=== PATIENT | female | born 1960 | race Caucasian/White ===

== ENCOUNTER 2019-05-06 11:12 | Emergency (ER) | payer MEDICARE, OTHER, SELFPAY ==
[2019-05-06 11:18] VITALS: BP 161/94; PULSE 80; RESP 16; TEMP 36; O2SAT 96
--- NOTE | 2019-05-06 11:38 | DI.RAD.S_ITS ---
PROCEDURE: XR ACUTE ABDOMEN SERIES INDICATIONS: abd pain TECHNIQUE: One view chest and two views of the abdomen were acquired. COMPARISON: None. FINDINGS: Surgical changes and devices: There is partial visualization of a left shoulder arthroplasty. Chest: Low lung volumes are noted. This causes a crowded appearance to the lung markings and limits evaluation. There is elevation the right hemidiaphragm. Interstitial prominence is seen throughout. Heart size is normal. No pleural effusions. No pneumoperitoneum. Abdomen: Bowel gas pattern is normal. There is a moderate amount of stool seen within the colon. No suspicious calcifications. Pelvic phleboliths are incidentally noted. Visualized solid organ contours appear normal. Bones: No suspicious bony lesions. Age-appropriate bony degenerative changes are seen. IMPRESSION: There is a moderate amount of stool seen within the colon. Please correlate with an underlying history of constipation. A nonobstructive bowel gas pattern is seen. As clinically appropriate, please consider a repeat plain film study or a dedicated CT of the abdomen and pelvis, if the patient's symptoms persist or worsen. Interstitial prominence is seen throughout. The interstitial prominence is nonspecific, yet may be related to pulmonary edema. Differential diagnosis includes artifact from an incomplete inspiratory result. Dictated by: Declan Cordao M.D. on 05/06/2019 at 11:23 Approved by: Declan Corado M.D. on 05/06/2019 at 11:24
--- NOTE | 2019-05-06 11:47 | DI.US.S_ITS ---
PROCEDURE: US ABDOMEN LIMITED INDICATIONS: RIGHT UPPER QUADRANT PAIN TECHNIQUE: Real-time focused scanning was performed of the abdomen, with image documentation. COMPARISON: [facility], CR, XR ACUTE ABDOMEN SERIES, 05/06/2019, 11:39. FINDINGS: The gallbladder is not well-seen. However, no findings of gallstones or sludge are seen. The gallbladder wall is not thickened, measuring 3 mm or less. No specific pericholecystic fluid is seen. The sonographic Nye sign is negative. There is no biliary dilatation, the common bile duct measures 6-7 mm. The liver demonstrates normal size. The liver demonstrates generalized increased echogenicity. This decreases ultrasound sensitivity for detection of hepatic masses. The pancreas is not well-seen. IMPRESSION: The gallbladder demonstrates a normal sonographic appearance. No biliary dilatation is seen. The liver demonstrates increased echogenicity. This finding is nonspecific, yet it is most commonly attributed to fatty infiltration. Dictated by: Declan Corado M.D. on 05/06/2019 at 13:13 Approved by: Declan Corado M.D. on 05/06/2019 at 13:15
[2019-05-06 12:00] VITALS: BP 144/94; PULSE 69; RESP 12; O2SAT 95
[2019-05-06 12:09] LABS: Add Manual Diff / Slide Review NO; Basophils Absolute Auto 100 /uL (0-100); Basophils Percent Auto 1.4 % (0-2); Eosinophils Absolute Auto 200 /uL (0-450); Eosinophils Percent Auto 3.2 % (2-4); Hemoglobin 12.5 g/dL (12.0-16.0); Lymphocytes Absolute Auto 2000 /uL (1100-4500); Lymphocytes Percent Auto 29.7 % (25-40); Mean Corpuscular HGB Conc 33.9 % (30-36); Mean Corpuscular Hemoglobin 30.4 PG (26-34); Mean Corpuscular Volume 89.6 fL (80-100); Monocytes Absolute Auto 400 /uL (0-900); Monocytes Percent Auto 6.2 % (3-14); Neutrophils Absolute Auto 3900 /uL (1500-7000); Neutrophils Percent Auto 59.5 % (50-75); Platelet Count 259 X10^3/uL (150-400); Red Blood Cell Count 4.12 X10^6/uL (4.0-5.2); White Blood Cell Count 6.6 X10^3/uL (4.5-11.0)
[2019-05-06 12:16] LABS: INR 0.9 (0.9-1.3); Prothrombin Time 10.5 SECONDS (10.1-12.7)
[2019-05-06 12:19] LABS: PTT Partial Thromboplastin Tim 28 SECONDS (26.4-36.2)
[2019-05-06 12:20] LABS: Alanine Aminotransferase 24 IU/L (9-52); Albumin 4.1 g/dL (3.5-5.0); Albumin Globulin Ratio 1.4 (1.0-2.8); Alkaline Phosphatase 52 U/L (38-126); Aspartate Aminotransferase 28 IU/L (14-36); BUN Creatinine Ratio 23.3 (6-22); Bilirubin Total 0.3 mg/dL (0.2-1.3); Blood Urea Nitrogen 14 mg/dL (7-17); Calcium 9.3 mg/dL (8.4-10.2); Carbon Dioxide 28 mmol/L (22-32); Chloride 101 mmol/L (98-107); Estimated Glomerular Filt Rate > 60.0 mL/min (>60); Glucose 113 mg/dL (70-100); HEMOLYSIS < 15 (0-50); Lipase 41 U/L (23-300); Potassium 3.7 mmol/L (3.4-5.1); Sodium 139 mmol/L (137-145); Total Protein 7.1 g/dL (6.3-8.2)
--- NOTE | 2019-05-06 12:23 | ED.ABDPAIN ---
HPI - Abdominal Pain General Chief Complaint: Abdominal Pain Stated Complaint: chest pain Time Seen by Provider: 05/06/19 11:14 Source: patient and family Mode of arrival: ambulatory Limitations: no limitations History of Present Illness HPI narrative: 58-year-old female nonsmoker with complicated medical history presents with a chief complaint of sharp and stabbing right sided abdominal pain off and on for the past day or 2. She denies fever or chills nor nausea or vomiting. She is admittedly had decreased bowel movements. Six weeks ago the patient had a partial lobectomy in [place] due to abnormal biopsies. This was followed up with a VATS procedure. Her pain is worse with motion and deep breaths. She does not feel short of breath. MD complaint: abdominal pain Onset (ago): day(s) Pain Consistency: intermittent Location: RUQ Severity: moderate Quality: stabbing and sharp Relieving factors: rest Exacerbating factors: nothing Associated symptoms: denies other symptoms Related Data Allergies Allergy/AdvReac Type Severity Reaction Status Date / Time No Known Drug Allergies Allergy Verified 05/06/19 11:22 Review of Systems Constitutional Denies chills, Denies fever(s), Denies lethargy and Denies weakness Eyes Denies change in vision, Denies eye discharge, Denies irritation and Denies loss of vision ENT Ears, Nose, Mouth, and Throat: Denies change in voice, Denies neck pain and Denies sore throat Cardiovascular Denies chest pain, Denies irregular heart rhythm, Denies lightheadedness, Denies palpitations, Denies dyspnea, Denies dyspnea on exertion and Denies orthopnea Respiratory Denies cough, Denies dyspnea, Denies dyspnea on exertion and Denies wheezing Gastrointestinal Gastrointestinal: Reports abdominal pain, Denies change in bowel habits, Denies diarrhea, Denies nausea and Denies vomiting Genitourinary Denies hematuria, Denies flank pain, Denies urinary incontinence and Denies urinary urgency Musculoskeletal Denies neck pain Integumentary/Breasts Denies pruritus, Denies erythema, Denies rash and Denies wounds Neurologic Denies confusion, Denies loss of vision and Denies weakness Psychiatric Denies anxiety, Denies confusion, Denies depression, Denies homicidal ideation and Denies suicidal ideation Endocrine Denies palpitations Hematologic/Lymphatic Denies easy bruising Allergic/Immunologic Denies wheezing [facility] Social History Smoking Status: Never smoker Social History Smoking Status: Never smoker Exam Narrative Exam Narrative: GENERAL: 58-year-old female appears stated age, resting comfortably though obviously uncomfortable, rubbing her right upper quadrant HEAD: Atraumatic. Normocephalic. No temporal or scalp tenderness. EYES: Pupils equal round and reactive. Extraocular motions intact. No scleral icterus. No injection or drainage. ENT: Nose without bleeding, purulent drainage or septal hematoma. Throat without erythema, tonsillar hypertrophy or exudate. Uvula midline. Airway patent. NECK: Trachea midline. No JVD or lymphadenopathy. Supple, nontender, no meningeal signs. CARDIOVASCULAR: Regular rate and rhythm without murmurs, gallops, or rubs. RESPIRATORY: Clear to auscultation. Breath sounds equal bilaterally. No wheezes, rales, or rhonchi. GASTROINTESTINAL: Abdomen soft, reproducible tenderness to palpation of the right upper quadrant, nondistended. No hepato-splenomegaly, or palpable masses. No guarding. EXTREMITIES: No clubbing, cyanosis, or edema. No joint tenderness, effusion, or edema noted. BACK: Nontender without deformity or crepitance. No flank tenderness. NEURO: AOx3. SKIN: No rash or erythema. Initial Vital Signs Initial Vital Signs: Vital Signs Temperature 96.8 F L 05/06/19 11:18 Pulse Rate 80 05/06/19 11:18 Respiratory Rate 16 05/06/19 11:18 Blood Pressure 161/94 H 05/06/19 11:18 Pulse Oximetry 96 05/06/19 11:18 Course Orders Ordered: ED Orders 05/06/19 11:37 EKG-12 Lead Stat 05/06/19 11:38 XR acute abdomen series Stat 05/06/19 11:47 US abdomen limited Stat 05/06/19 12:00 Complete Blood Count AUTO DIFF Stat Comprehensive Metabolic Panel Stat Lipase Stat Partial Thromboplastin Time Stat Prothrombin Time INR Stat Discontinued Medications Hydromorphone HCl (Dilaudid) 1 mg IV NOW ONE Stop: 05/06/19 11:49 Last Admin: 05/06/19 12:53 Dose: 1 mg Hydromorphone HCl (Dilaudid) 1 mg IV NOW ONE Stop: 05/06/19 14:33 Last Admin: 05/06/19 14:38 Dose: 1 mg Ondansetron HCl (Zofran) 4 mg IV Q4HR PRN PRN Reason: Nausea And Vomiting Last Admin: 05/06/19 12:53 Dose: 4 mg Vital Signs - 8 hr 05/06/19 11:18 05/06/19 12:00 05/06/19 13:06 Temperature 96.8 F L Pulse Rate 80 69 68 Respiratory Rate 16 12 14 Blood Pressure 161/94 H Blood Pressure [Left Arm] 144/94 H 131/76 Pulse Oximetry 96 95 96 05/06/19 13:44 05/06/19 14:59 Temperature 98.3 F Pulse Rate 64 68 Respiratory Rate 13 14 Blood Pressure 143/75 H Blood Pressure [Left Arm] 137/86 Pulse Oximetry 94 96 MDM - Abdominal Pain Lab Data Result diagrams: 05/06/19 12:00 05/06/19 12:00 Lab Results 05/06/19 05/06/19 05/06/19 Range/Units 12:00 12:00 12:00 WBC 6.6 (4.5-11.0) X10^3/uL RBC 4.12 (4.0-5.2) X10^6/uL Hgb 12.5 (12.0-16.0) g/dL Hct 37.0 (36-46) % MCV 89.6 (80-100) fL MCH 30.4 (26-34) PG MCHC 33.9 (30-36) % RDW 15.0 H (11.6-14.8) % Plt Count 259 (150-400) X10^3/uL Neut % (Auto) 59.5 (50-75) % Lymph % (Auto) 29.7 (25-40) % Cataño % (Auto) 6.2 (3-14) % Eos % (Auto) 3.2 (2-4) % Baso % (Auto) 1.4 (0-2) % Neut # (Auto) 3900 (7763-7154) /uL Lymph # (Auto) 2000 (5443-5394) /uL Cataño # (Auto) 400 (0-900) /uL Eos # (Auto) 200 (0-450) /uL Baso # (Auto) 100 (0-100) /uL PT 10.5 (10.1-12.7) SECONDS INR 0.9 (0.9-1.3) APTT 28 (26.4-36.2) SECONDS Sodium 139 (137-145) mmol/L Potassium 3.7 (3.4-5.1) mmol/L Chloride 101 (98-107) mmol/L Carbon Dioxide 28 (22-32) mmol/L BUN 14 (7-17) mg/dL Creatinine 0.60 (0.52-1.04) mg/dL Estimated GFR > 60.0 (>60) mL/min BUN/Creatinine Ratio 23.3 H (6-22) Glucose 113 H (70-100) mg/dL Calcium 9.3 (8.4-10.2) mg/dL Total Bilirubin 0.3 (0.2-1.3) mg/dL AST 28 (14-36) IU/L ALT 24 (9-52) IU/L Alkaline Phosphatase 52 (38-126) U/L Total Protein 7.1 (6.3-8.2) g/dL Albumin 4.1 (3.5-5.0) g/dL Globulin 3.0 (1.7-4.1) g/dL Albumin/Globulin Ratio 1.4 (1.0-2.8) Lipase 41 (23-300) U/L Imaging Data Abdominal x-ray: Radiologist's impression: Chart Viewer Diagnostics DATE TYPE STATUS AUTHOR Hx 05/06/19 11:47 Declan Corado 05/06/19 11:38 Declan Corado Katheline K 58, 1960 DEP ER, ED.LOC - Main ED Abdominal Pain Search Chart No Data to Display ONSET Today 14:59 Kenna Lopez 58 F [address] [address] XRay Report Signed Patient: John,Katdane KMR#: [id number] : 9Acct:[id number] Age/Sex: 58 / FDate of Service: 05/06/19 Loc: ED Accession Number: [id number] Procedure: XR acute abdomen series Ordering Provider: Juan Alberto Graves D.O. PROCEDURE: XR ACUTE ABDOMEN SERIES INDICATIONS: abd pain TECHNIQUE: One view chest and two views of the abdomen were acquired. COMPARISON: None. FINDINGS: Surgical changes and devices: There is partial visualization of a left shoulder arthroplasty. Chest: Low lung volumes are noted. This causes a crowded appearance to the lung markings and limits evaluation. There is elevation the right hemidiaphragm. Interstitial prominence is seen throughout. Heart size is normal. No pleural effusions. No pneumoperitoneum. Abdomen: Bowel gas pattern is normal. There is a moderate amount of stool seen within the colon. No suspicious calcifications. Pelvic phleboliths are incidentally noted. Visualized solid organ contours appear normal. Bones: No suspicious bony lesions. Age-appropriate bony degenerative changes are seen. IMPRESSION: There is a moderate amount of stool seen within the colon. Please correlate with an underlying history of constipation. A nonobstructive bowel gas pattern is seen. As clinically appropriate, please consider a repeat plain film study or a dedicated CT of the abdomen and pelvis, if the patient's symptoms persist or worsen. Interstitial prominence is seen throughout. The interstitial prominence is nonspecific, yet may be related to pulmonary edema. Differential diagnosis includes artifact from an incomplete inspiratory result. Dictated by: Declan Corado M.D. on 05/06/2019 at 11:23 Approved by: Declan Corado M.D. on 05/06/2019 at 11:24 US - abdomen: Radiologist's impression: [place] [address] Ultrasound Report Signed Patient: Kenna Lopez KMR#: [id number] : 9Acct:[id number] Age/Sex: 58 / FDate of Service: 05/06/19 Loc: ED Accession Number: [id number] Procedure: US abdomen limited Ordering Provider: Juan Alberto Graves D.O. PROCEDURE: US ABDOMEN LIMITED INDICATIONS: RIGHT UPPER QUADRANT PAIN TECHNIQUE: Real-time focused scanning was performed of the abdomen, with image documentation. [facility] 11:39. FINDINGS: The gallbladder is not well-seen. However, no findings of gallstones or sludge are seen. The gallbladder wall is not thickened, measuring 3 mm or less. No specific pericholecystic fluid is seen. The sonographic Nye sign is negative. There is no biliary dilatation, the common bile duct measures 6-7 mm. The liver demonstrates normal size. The liver demonstrates generalized increased echogenicity. This decreases ultrasound sensitivity for detection of hepatic masses. The pancreas is not well-seen. IMPRESSION: The gallbladder demonstrates a normal sonographic appearance. No biliary dilatation is seen. The liver demonstrates increased echogenicity. This finding is nonspecific, yet it is most commonly attributed to fatty infiltration. Dictated by: Declan Corado M.D. on 05/06/2019 at 13:13 MDM Narrative Medical decision making narrative: 58-year-old female with right upper quadrant pain and recent lobectomy presents in obvious discomfort. She has stable vital signs and imaging to demonstrate constipation. Gallbladder disease, liver disease and pancreatitis are considered as options but thought less likely given lack of laboratory or ultrasound findings. Postoperative complications including pneumothorax, pleural effusion and others considered but thought less likely given x-ray findings. Patient felt much better after the above-stated therapies. We discussed CT of the chest abdomen and pelvis for the most complete approach and the patient refused at this point in time despite a discussion of the risks and benefits. She states she is headed home in a day or 2 feels so much better that she would prefer the completion of her evaluation there. She was given return precautions. Her and daughter had questions answered to their apparent satisfaction Discharge Plan Departure Patient Disposition: Home Clinical Impression: Abdominal pain Qualifiers: Abdominal location: right upper quadrant Qualified Code(s): R10.11 - Right upper quadrant pain Discharge Date/Time: 05/06/19 15:00 Interventions: ED Discharge Assessment Last Done: 05/06/19 14:59 Instructions: Acute Abdominal Pain Activity Restrictions/Additional Instructions: *You have been diagnosed with [ acute right upper quadrant pain. ] *What to do: *Take medications as directed *Follow up with your primary care provider in 2-3 days, call for an appointment. Let them know you were seen in the Emergency Department and that we ask that you be seen in follow up *Return to ER if you should have any new, worsening or concerning symptoms
[2019-05-06] MEDS: HYDROMORPHONE 1 MG INJ IV ×2 (12:53→14:38)
[2019-05-06] MEDS: ONDANSETRON 4 MG/2 ML INJ IV (12:53)
[2019-05-06 13:06] VITALS: BP 131/76; PULSE 68; RESP 14; O2SAT 96
[2019-05-06 13:44] VITALS: BP 137/86; PULSE 64; RESP 13; O2SAT 94
[2019-05-06 14:59] VITALS: BP 143/75; PULSE 68; RESP 14; TEMP 36.8; O2SAT 96
--- NOTE | 2019-05-06 19:11 | ED_ITS ---
HPI - Abdominal Pain General Chief Complaint: Abdominal Pain Stated Complaint: chest pain Time Seen by Provider: 05/06/19 11:14 Source: patient and family Mode of arrival: ambulatory Limitations: no limitations History of Present Illness HPI narrative: 58-year-old female nonsmoker with complicated medical history pr esents with a chief complaint of sharp and stabbing right sided abdominal pain off and on for the past day or 2. She denies fever or chills nor nausea or vomiting. She is admittedly had decreased bowel movements. Six weeks ago the patient had a partial lobectomy in [place] due to abnormal biopsies. This was followed up with a VATS procedure. Her pain is worse with motion and deep breaths. She does not feel short of breath. MD complaint: abdominal pain Onset (ago): day(s) Pain Consistency: intermittent Location: RUQ Severity: moderate Quality: stabbing and sharp Relieving factors: rest Exacerbating factors: nothing Associated symptoms: denies other symptoms Related Data Allergies Allergy/AdvReac Type Severity Reaction Status Date / Time No Known Drug Allergies Allergy Verified 05/06/19 11:22 Review of Systems Constitutional Denies chills, Denies fever(s), Denies lethargy and Denies weakness Eyes Denies change in vision, Denies eye discharge, Denies irritation and Denies loss of vision ENT Ears, Nose, Mouth, and Throat: Denies change in voice, Denies neck pain and Denies sore throat Cardiovascular Denies chest pain, Denies irregular heart rhythm, Denies lightheadedness, Denies palpitations, Denies dyspnea, Denies dyspnea on exertion and Denies orthopnea Respiratory Denies cough, Denies dyspnea, Denies dyspnea on exertion and Denies wheezing Gastrointestinal Gastrointestinal: Reports abdominal pain, Denies change in bowel habits, Denies diarrhea, Denies nausea and Denies vomiting Genitourinary Denies hematuria, Denies flank pain, Denies urinary incontinence and Denies urinary urgency Musculoskeletal Denies neck pain Integumentary/Breasts Denies pruritus, Denies erythema, Denies rash and Denies wounds Neurologic Denies confusion, Denies loss of vision and Denies weakness Psychiatric Denies anxiety, Denies confusion, Denies depression, Denies homicidal ideation and Denies suicidal ideation Endocrine Denies palpitations Hematologic/Lymphatic Denies easy bruising Allergic/Immunologic Denies wheezing PFSH Social History Smoking Status: Never smoker Social History Smoking Status: Never smoker Exam Narrative Exam Narrative: GENERAL: 58-year-old female appears stated age, resting comfortably though obviously uncomfortable, rubbing her right upper quadrant HEAD: Atraumatic. Normocephalic. No temporal or scalp tenderness. EYES: Pupils equal round and reactive. Extraocular motions intact. No scleral icterus. No injection or drainage. ENT: Nose without bleeding, purulent drainage or septal hematoma. Throat without erythema, tonsillar hypertrophy or exudate. Uvula midline. Airway patent. NECK: Trachea midline. No JVD or lymphadenopathy. Supple, nontender, no meningeal signs. CARDIOVASCULAR: Regular rate and rhythm without murmurs, gallops, or rubs. RESPIRATORY: Clear to auscultation. Breath sounds equal bilaterally. No wheezes, rales, or rhonchi. GASTROINTESTINAL: Abdomen soft, reproducible tenderness to palpation of the right upper quadrant, nondistended. No hepato-splenomegaly, or palpable masses. No guarding. EXTREMITIES: No clubbing, cyanosis, or edema. No joint tenderness, effusion, or edema noted. BACK: Nontender without deformity or crepitance. No flank tenderness. NEURO: AOx3. SKIN: No rash or erythema. Initial Vital Signs Initial Vital Signs: Vital Signs Temperature 96.8 F L 05/06/19 11:18 Pulse Rate 80 05/06/19 11:18 Respiratory Rate 16 05/06/19 11:18 Blood Pressure 161/94 H 05/06/19 11:18 Pulse Oximetry 96 05/06/19 11:18 Course Orders Ordered: ED Orders 05/06/19 11:37 EKG-12 Lead Stat 05/06/19 11:38 XR acute abdomen series Stat 05/06/19 11:47 US abdomen limited Stat 05/06/19 12:00 Complete Blood Count AUTO DIFF Stat Comprehensive Metabolic Panel Stat Lipase Stat Partial Thromboplastin Time Stat Prothrombin Time INR Stat Discontinued Medications Hydromorphone HCl (Dilaudid) 1 mg IV NOW ONE Stop: 05/06/19 11:49 Last Admin: 05/06/19 12:53 Dose: 1 mg Hydromorphone HCl (Dilaudid) 1 mg IV NOW ONE Stop: 05/06/19 14:33 Last Admin: 05/06/19 14:38 Dose: 1 mg Ondansetron HCl (Zofran) 4 mg IV Q4HR PRN PRN Reason: Nausea And Vomiting Last Admin: 05/06/19 12:53 Dose: 4 mg Vital Signs - 8 hr 05/06/19 11:18 05/06/19 12:00 05/06/19 13:06 Temperature 96.8 F L Pulse Rate 80 69 68 Respiratory Rate 16 12 14 Blood Pressure 161/94 H Blood Pressure [Left Arm] 144/94 H 131/76 Pulse Oximetry 96 95 96 05/06/19 13:44 05/06/19 14:59 Temperature 98.3 F Pulse Rate 64 68 Respiratory Rate 13 14 Blood Pressure 143/75 H Blood Pressure [Left Arm] 137/86 Pulse Oximetry 94 96 MDM - Abdominal Pain Lab Data Result diagrams: 05/06/19 12:00 05/06/19 12:00 Lab Results 05/06/19 05/06/19 05/06/19 Range/Units 12:00 12:00 12:00 WBC 6.6 (4.5-11.0) X10^3/uL RBC 4.12 (4.0-5.2) X10^6/uL Hgb 12.5 (12.0-16.0) g/dL Hct 37.0 (36-46) % MCV 89.6 (80-100) fL MCH 30.4 (26-34) PG MCHC 33.9 (30-36) % RDW 15.0 H (11.6-14.8) % Plt Count 259 (150-400) X10^3/uL Neut % (Auto) 59.5 (50-75) % Lymph % (Auto) 29.7 (25-40) % Pitt % (Auto) 6.2 (3-14) % Eos % (Auto) 3.2 (2-4) % Baso % (Auto) 1.4 (0-2) % Neut # (Auto) 3900 (1195-9329) /uL Lymph # (Auto) 2000 (2637-5053) /uL Pitt # (Auto) 400 (0-900) /uL Eos # (Auto) 200 (0-450) /uL Baso # (Auto) 100 (0-100) /uL PT 10.5 (10.1-12.7) SECONDS INR 0.9 (0.9-1.3) APTT 28 (26.4-36.2) SECONDS Sodium 139 (137-145) mmol/L Potassium 3.7 (3.4-5.1) mmol/L Chloride 101 (98-107) mmol/L Carbon Dioxide 28 (22-32) mmol/L BUN 14 (7-17) mg/dL Creatinine 0.60 (0.52-1.04) mg/dL Estimated GFR > 60.0 (>60) mL/min BUN/Creatinine Ratio 23.3 H (6-22) Glucose 113 H (70-100) mg/dL Calcium 9.3 (8.4-10.2) mg/dL Total Bilirubin 0.3 (0.2-1.3) mg/dL AST 28 (14-36) IU/L ALT 24 (9-52) IU/L Alkaline Phosphatase 52 (38-126) U/L Total Protein 7.1 (6.3-8.2) g/dL Albumin 4.1 (3.5-5.0) g/dL Globulin 3.0 (1.7-4.1) g/dL Albumin/Globulin Ratio 1.4 (1.0-2.8) Lipase 41 (23-300) U/L Imaging Data Abdominal x-ray: Radiologist's impression: Chart Viewer Diagnostics DATE TYPE STATUS AUTHOR Hx 05/06/19 11:47 Declan Corado 05/06/19 11:38 Declan Corado Katheline K 58, 1960 DEP ER, ED.LOC - Main ED Abdominal Pain Search Chart No Data to Display ONSET Today 14:59 Kenna Lopez 58 F [address] [address] XRay Report Signed Patient: John,Katdane KMR#: [id number] : 9Acct:[id number] Age/Sex: 58 / FDate of Service: 05/06/19 Loc: ED Accession Number: [id number] Procedure: XR acute abdomen series Ordering Provider: Juan Alberto Graves D.O. PROCEDURE: XR ACUTE ABDOMEN SERIES INDICATIONS: abd pain TECHNIQUE: One view chest and two views of the abdomen were acquired. COMPARISON: None. FINDINGS: Surgical changes and devices: There is partial visualization of a left shoulder arthroplasty. Chest: Low lung volumes are noted. This causes a crowded appearance to the lung markings and limits evaluation. There is elevation the right hemidiaphragm. Interstitial prominence is seen throughout. Heart size is normal. No pleural effusions. No pneumoperitoneum. Abdomen: Bowel gas pattern is normal. There is a moderate amount of stool seen within the colon. No suspicious calcifications. Pelvic phleboliths are incidentally noted. Visualized solid organ contours appear normal. Bones: No suspicious bony lesions. Age-appropriate bony degenerative changes are seen. IMPRESSION: There is a moderate amount of stool seen within the colon. Please correlate with an underlying history of constipation. A nonobstructive bowel gas pattern is seen. As clinically appropriate, please consider a repeat plain film study or a dedicated CT of the abdomen and pelvis, if the patient's symptoms persist or worsen. Interstitial prominence is seen throughout. The interstitial prominence is nonspecific, yet may be related to pulmonary edema. Differential diagnosis includes artifact from an incomplete inspiratory result. Dictated by: Declan Corado M.D. on 05/06/2019 at 11:23 Approved by: Declan Corado M.D. on 05/06/2019 at 11:24 US - abdomen: Radiologist's impression: [place] [address] Ultrasound Report Signed Patient: Kenna Lopez KMR#: [id number] : 9Acct:[id number] Age/Sex: 58 / FDate of Service: 05/06/19 Loc: ED Accession Number: [id number] Procedure: US abdomen limited Ordering Provider: Juan Alberto Graves D.O. PROCEDURE: US ABDOMEN LIMITED INDICATIONS: RIGHT UPPER QUADRANT PAIN TECHNIQUE: Real-time focused scanning was performed of the abdomen, with image documentation. [facility], 05/06/2019, 11:39. FINDINGS: The gallbladder is not well-seen. However, no findings of gallstones or sludge are seen. The gallbladder wall is not thickened, measuring 3 mm or less. No specific pericholecystic fluid is seen. The sonographic Nye sign is negative. There is no biliary dilatation, the common bile duct measures 6-7 mm. The liver demonstrates normal size. The liver demonstrates generalized increased echogenicity. This decreases ultrasound sensitivity for detection of hepatic masses. The pancreas is not well-seen. IMPRESSION: The gallbladder demonstrates a normal sonographic appearance. No biliary dilatation is seen. The liver demonstrates increased echogenicity. This finding is nonspecific, yet it is most commonly attributed to fatty infiltration. Dictated by: Declan Corado M.D. on 05/06/2019 at 13:13 MDM Narrative Medical decision making narrative: 58-year-old female with right upper quadrant pain and recent lobectomy presents in obvious discomfort. She has stable vital signs and imaging to demonstrate constipation. Gallbladder disease, liver disease and pancreatitis are considered as options but thought less likely given lack of laboratory or ultrasound findings. Postoperative complications inc luding pneumothorax, pleural effusion and others considered but thought less likely given x-ray findings. Patient felt much better after the above-stated therapies. We discussed CT of the chest abdomen and pelvis for the most complete approach and the patient refused at this point in time despite a discussion of the risks and benefits. She states she is headed home in a day or 2 feels so much better that she would prefer the completion of her evaluation there. She was given return precautions. Her and daughter had questions answered to their apparent satisfaction Discharge Plan Departure Patient Disposition: Home Clinical Impression: Abdominal pain Qualifiers: Abdominal location: right upper quadrant Qualified Code(s): R10.11 - Right upper quadrant pain Discharge Date/Time: 05/06/19 15:00 Interventions: ED Discharge Assessment Last Done: 05/06/19 14:59 Instructions: Acute Abdominal Pain Activity Restrictions/Additional Instructions: *You have been diagnosed with [ acute right upper quadrant pain. ] *What to do: *Take medications as directed *Follow up with your primary care provider in 2-3 days, call for an appointment. Let them know you were seen in the Emergency Department and that we ask that you be seen in follow up *Return to ER if you should have any new, worsening or concerning symptoms
== END 2019-05-06 15:00 | disposition home or self-care (01) ==
PROVIDERS: Emergency Provider Emergency Medicine
DX: R10.11 Right upper quadrant pain (principal); R06.02 Shortness of breath; R07.89 Other chest pain
CPT/HCPCS: 36591; 74022; 76705; 80053; 83690; 85025; 85610; 85730; 93005; 96374; 96375; 96376; 99283; 99285; J1170; J2405